=== PATIENT | male | born 1960 | race Hispanic/Latino ===

== ENCOUNTER → 2017-11-21 | Day surgery (SDC) | payer SELFPAY ==
[~2017-11-21] MED LIST: Lidocaine 1% PF 5 ML VIAL ONE; PROPOFOL 200 MG/20 ML VIAL ONE; Succinylcholine Chloride 20 MG/ML 10 ml SYRINGE FS ONE
[2017-11-21 21:47] LABS: #Eosinphils 0.3 thou/uL (0.0-0.7); #Lymphocytes 2.4 thou/uL (1.20-3.40); #Monocytes 0.5 thou/uL (0.11-0.59); #Neutrophils 4.5 thou/uL (1.40-6.50); %Basophils 0.5 % (0.0-1.0); %Eosinophils 3.5 % (0.0-10.0); %Lymphocytes 31.1 % (21.0-51.0); %Monocytes 6.2 % (0.0-10.0); %Neutrophils 58.7 % (42.0-75.0); Hemoglobin 14.9 g/dL (14.0-18.0); Mean Corpuscular HGB CONC 35.5 g/dL (32.0-36.0); Mean Corpuscular Hemoglobin 31.2 pg (27.0-31.0); Mean Corpuscular Volume 87.7 fL (78.0-98.0); Platelet Count 152 thou/uL (130-400); RBC Distribution Width 11.8 % (11.5-14.5); Red Blood Cell (RBC) Count 4.78 mill/uL (4.70-6.10); White Blood Cell (WBC) Count 7.6 thou/uL (4.8-10.8)
[2017-11-21 22:04] LABS: ALT (SGPT) 135 U/L (8-55); AST (SGOT) 74 U/L (5-34); Albumin 4.1 g/dL (3.5-5.0); Alkaline Phosphatase 127 U/L (40-150); Anion Gap 16 mmol/L (10-20); BUN (Urea Nitrogen) 16 mg/dL (8.4-25.7); Bilirubin, Total 0.6 mg/dL (0.2-1.2); Calc. Creatinine Clearance 0 mL/min (70-130); Calcium 9.3 mg/dL (7.8-10.44); Carbon Dioxide 17 mmol/L (22-29); Chloride 106 mmol/L (98-107); Estimated GFR-MDRD 52; Globulin 2.8 g/dL (2.4-3.5); Potassium 4.4 mmol/L (3.5-5.1); Protein, Total 6.9 g/dL (6.0-8.3); Sodium 135 mmol/L (136-145)
[2017-11-21 22:11] LABS: Glucose 562 mg/dL (70-105)
--- NOTE | 2017-11-21 22:15 | CT ---
CT NECK WITHOUT CONTRAST: 11/21/17 Multiple axial tomograms obtained through the neck IV enhancement. INDICATIONS: Assess for foreign body stuck in throat. FINDINGS: Parotid glands, submandibular glands and thyroid appear unremarkable. Nasopharynx unremarkable. Oropharynx and hypopharynx unremarkable. Larynx unremarkable. No radiopaque foreign body seen in the oropharynx, hypopharynx, or within the trachea. There is a radiopaque foreign body noted in the upper esophagus which would correspond to patient's s ymptoms. No evidence of adenopathy. Lung apices are clear. IMPRESSION: There is a radiopaque foreign body in the upper esophagus. This foreign body has a linear appearance measuring approximately 3 cm width x 0.5 cm thickness. POS: [facility]
--- NOTE | 2017-11-22 00:23 | OP ---
DATE OF PROCEDURE: 11/21/2017 PROCEDURE: Esophagogastroduodenoscopy with removal of foreign body from the esophagus. PREOPERATIVE DIAGNOSIS: Esophageal foreign body. OPERATIVE NOTE: Informed consent was obtained from the patient. He was sedated with general anesthe marlen. The bite block was placed the endoscope was advanced to the proximal esophagus where a bone fra gment was encountered. This measured around 3 cm and was lodged in the upper esophagus. There was n ot a focal stricture in this area. The fragment appears to have gotten large based on the size and s hape of the object and rather than narrowing of the esophagus. The bone fragment was grasped with a snare and removed through the patient's mouth. The remainder of the esophagus did not have focal abn ormality. The stomach had retained food that obscured views in the antrum and body and fundus. The duodenum was not visualized well either due to retained food. IMPRESSION: 1. Bone fragment removed from the proximal esophagus with a snare. There is no focal stricture at t his level. 2. Retained food in the stomach and duodenum obscured adequate endoscopic views. RECOMMENDATIONS: Follow up in GI clinic.
--- NOTE | 2017-11-22 00:36 | CON ---
DATE OF CONSULTATION: 11/21/2017 GASTROENTEROLOGY ER CONSULTATION NOTE CHIEF COMPLAINT: "Bone stuck in my esophagus." HISTORY OF PRESENT ILLNESS: Mr. Robles is a 57-year-old man who presented to the emergency room after he was eating some steak and had a bone get stuck in his esophagus around 7:30 p.m. He does not hav e teeth. He was working on getting the meat off a bone and swallowed the bone. He is able to swallo w his saliva around the bone. He has had a foreign body stuck in his throat couple years ago as well . He had a CT scan of his neck done in the ER that showed a 3 cm foreign body in the upper esophagus . He has had no nausea, vomiting, diarrhea, constipation. No weight loss. No prior acid reflux. N o chest pain or shortness of breath. PAST MEDICAL HISTORY: Diabetes. PAST SURGICAL HISTORY: Circumcision. FAMILY HISTORY: Negative for GI malignancy. SOCIAL HISTORY: Has a glass of wine each evening. He quit smoking 3 months ago. No drugs. ALLERGIES: No known drug allergies. MEDICATIONS: Metformin and possibly glyburide. REVIEW OF SYSTEMS: Negative x10 systems reviewed except as stated in the history of present illness. PHYSICAL EXAMINATION: VITAL SIGNS: Blood pressure 132/76, pulse 104, temperature 99.2. GENERAL: He is in no acute distress, alert, and oriented x3. HEENT: Eyes have no scleral icterus. Oropharynx is clear without lesions. NECK: No cervical or supraclavicular lymphadenopathy. LUNGS: Clear to auscultation bilaterally. HEART: Regular rate and rhythm without murmur. ABDOMEN: Soft, nontender, and nondistended. Bowel sounds are present. EXTREMITIES: No lower extremity edema. NEUROLOGIC: Cranial nerves are grossly intact. LABORATORY DATA: White blood cell count 7.6, hemoglobin 14.9, platelets 152. Creatinine 1.39, glucose 562, bilirubin 0.6, AST 74, ALT 135, alkaline phosphatase 127. IMPRESSION: 1. Esophageal foreign body. There is a 3-cm bone stuck in his upper esophagus by CT. 2. Elevated liver function tests. His ALT is greater than the AST. He does have a glass of wine in the evenings. His platelets are in the lower limits of normal, which may indicate some degree of po rtal hypertension. RECOMMENDATIONS: 1. We will plan esophagogastroduodenoscopy this evening to remove the foreign body. 2. Follow up in GI clinic to further evaluate the elevated liver tests. 3. Anticipate he will be discharged home following the endoscopy. 4. Discontinue alcohol for now.
== END ==
LOC: ERS 20:59 → SDC/OP 23:58
PROVIDERS: ATTEND Internal Medicine Gastroenterology
PROC: 0DC18ZZ Extirpation of Matter from Upper Esophagus, Via Natural or Artificial Opening Endoscopic (ICD-10-PCS; principal; 2017-11-21)
DX: T18.128A Food in esophagus causing other injury, initial encounter (principal); E11.9 Type 2 diabetes mellitus without complications; R79.89 Other specified abnormal findings of blood chemistry
CPT/HCPCS: 70490; 80053; 85025; 86850; 86900; 86901; J2001; J2704

== ENCOUNTER 2023-02-03 08:04 | Inpatient (IN) | payer SELFPAY ==
[2023-02-03 08:31] LABS: #Basophils 0.1 thou/uL (0.0-0.2); #Eosinphils 0.3 thou/uL (0.0-0.7); #Monocytes 0.9 thou/uL (0.11-0.59); #Neutrophils 10.2 thou/uL (1.40-6.50); %Basophils 0.5 % (0.0-1.0); %Eosinophils 2.3 % (0.0-10.0); %Lymphocytes 13.6 % (21.0-51.0); %Monocytes 6.7 % (0.0-10.0); %Neutrophils 76.6 % (42.0-75.0); Hematocrit 44.6 % (42.0-52.0); Hemoglobin 15.3 g/dL (14.0-18.0); Mean Corpuscular HGB CONC 34.3 g/dL (32.0-36.0); Mean Corpuscular Hemoglobin 29.6 pg (27.0-31.0); Mean Corpuscular Volume 86.3 fl (78.0-98.0); Mean Platelet Volume 10.6 fL (7.4-10.4); Platelet Count 230 10x3/uL (130-400); RBC Distribution Width 12.2 % (11.5-14.5); Red Blood Cell (RBC) Count 5.17 mill/uL (4.70-6.10); White Blood Cell (WBC) Count 13.3 10x3/uL (4.8-10.8)
[2023-02-03 08:45] LABS: ALT (SGPT) 89 U/L (8-55); AST (SGOT) 40 U/L (5-34); Albumin 4.2 g/dL (3.4-4.8); Alkaline Phosphatase 97 U/L (40-110); Anion Gap 14 mmol/L (10-20); BUN (Urea Nitrogen) 16 mg/dL (8.4-25.7); Calc. Creatinine Clearance 0 mL/min (70-130); Calcium 9.7 mg/dL (7.8-10.44); Carbon Dioxide 21 mmol/L (23-31); Chloride 101 mmol/L (98-107); Estimated GFR 97; Globulin 3.8 g/dL (2.4-3.5); Glucose 324 mg/dL (80-115); Potassium 3.9 mmol/L (3.5-5.1); Sodium 132 mmol/L (136-145)
[2023-02-03 08:46] LABS: INR-International Normal Ratio 1.1; PTT 27.5 sec (22.9-36.1); Prothrombin Time 14.5 sec (12.0-14.7)
[2023-02-03] MEDS ORDERED: CEFAZOLIN 1 GM VIAL ONE (09:15)
[2023-02-03] MEDS ORDERED: Ondansetron ODT 4 MG TAB SL PRN (09:30)
[2023-02-03] MEDS ORDERED: Acetaminophen 325 MG TAB PO PRN (09:30)
[2023-02-03] MEDS ORDERED: Ondansetron PF 4 MG/2 ML Vial IVP PRN (09:30)
[2023-02-03] MEDS ORDERED: Bisacodyl 5 MG TAB PO PRN (09:32)
[2023-02-03] MEDS ORDERED: HumaLOG 300 UNITS/3 ML VIAL SC PRN (09:32)
[2023-02-03] MEDS ORDERED: Senokot S 8.6-50 MG TAB PO PRN (09:32)
[2023-02-03] MEDS ORDERED: Bisacodyl 10 MG SUPP PR PRN (09:32)
[2023-02-03] MEDS ORDERED: Dextrose 50% Abboject 50 ML SYRINGE SLOW IVP PRN (09:32)
[2023-02-03] MEDS ORDERED: Glucagon 1 MG/ML KIT IM PRN (09:32)
[2023-02-03] MEDS ORDERED: Dextrose 5% in Water 1,000 ML IV PRN (09:32)
[2023-02-03] MEDS ORDERED: Lidocaine 1% w/Epinephrine 1:100K 20 ML VIAL ONE (09:36)
[2023-02-03] MEDS ORDERED: Boostrix 0.5 ML (Tdap) VIAL (>/=7 yrs of age) ONE ×2 (10:07→10:21)
[2023-02-03] MEDS ORDERED: Vancomycin 1.5 GRAM/300 ML BAG 1.5 GM in Premix Bag 1 BAG IVPB SCH (10:30)
[2023-02-03 11:39] VITALS: BMI 29.0
[2023-02-03] MEDS: HumaLOG 300 UNITS/3 ML VIAL SC PRN ×2 (13:12→17:10)
[2023-02-03 13:18] LABS: Synovial Fluid, Protein 7.7 g/dL (Not Available); Synovial Fluid, Uric Acid 3.4 mg/dL (Not Available)
[2023-02-03 13:36] LABS: RBC Count-Automated (BF) 98262 /cu.mm
[2023-02-03 13:38] LABS: BF Color Red; Body Fluid Source Synovial Fluid; Clarity Cloudy/Turbid (Clear); Tube # EDTA; WBC/Nucleated-Auto (BF) Greater than 51000 /cu.mm
[2023-02-03 14:31] LABS: BF Segmented Neutrophils 95 %; Cell Count Non Hematic 5 %
[2023-02-03] MEDS: HYDROcodone/Acetaminophen 5/325 mg Tablet PO PRN ×2 (15:09→20:51)
[2023-02-03] MEDS: VANCOMYCIN 1.25 GM/250 ML BAG 1.25 GM in Premix Bag 1 BAG IVPB SCH (20:16)
[2023-02-03] MEDS ORDERED: Insulin Glargine 30 UNITS/0.3 ML VIAL SC SCH (21:00)
[2023-02-04 08:08] LABS: #Basophils 0.1 thou/uL (0.0-0.2); #Eosinphils 0.5 thou/uL (0.0-0.7); #Monocytes 0.9 thou/uL (0.11-0.59); #Neutrophils 7.8 thou/uL (1.40-6.50); %Basophils 0.5 % (0.0-1.0); %Eosinophils 4.4 % (0.0-10.0); %Lymphocytes 12.9 % (21.0-51.0); %Neutrophils 73.9 % (42.0-75.0); Hematocrit 42.8 % (42.0-52.0); Hemoglobin 14.5 g/dL (14.0-18.0); Mean Corpuscular HGB CONC 33.9 g/dL (32.0-36.0); Mean Corpuscular Hemoglobin 29.3 pg (27.0-31.0); Mean Corpuscular Volume 86.5 fl (78.0-98.0); Mean Platelet Volume 10.7 fL (7.4-10.4); Platelet Count 208 10x3/uL (130-400); RBC Distribution Width 12.2 % (11.5-14.5); Red Blood Cell (RBC) Count 4.95 mill/uL (4.70-6.10); White Blood Cell (WBC) Count 10.6 10x3/uL (4.8-10.8)
[2023-02-04 08:15] LABS: Hemoglobin A1c 10.5 % (4.0-6.0)
[2023-02-04 08:31] LABS: ALT (SGPT) 65 U/L (8-55); AST (SGOT) 36 U/L (5-34); Albumin 3.7 g/dL (3.4-4.8); Alkaline Phosphatase 71 U/L (40-110); Anion Gap 14 mmol/L (10-20); BUN (Urea Nitrogen) 11 mg/dL (8.4-25.7); Bilirubin, Direct 0.4 mg/dL (0.1-0.3); Bilirubin, Total 0.9 mg/dL (0.2-1.2); Calc. Creatinine Clearance 115 mL/min (70-130); Calcium 9.1 mg/dL (7.8-10.44); Carbon Dioxide 22 mmol/L (23-31); Cardiac Risk 3.9 (Less than 4.5); Chloride 99 mmol/L (98-107); Cholesterol 149 mg/dl (< 200 Desired); Estimated GFR 101; Glucose 238 mg/dL (80-115); HDL Cholesterol 38 mg/dL (>60 Neg Risk); LDL Cholesterol, Calculated 90 mg/dL; Magnesium 1.6 mg/dL (1.6-2.6); Protein, Total 6.9 g/dL (5.8-8.1); Sodium 131 mmol/L (136-145); Triglycerides 104 mg/dL (Less than 150)
[2023-02-04] MEDS: VANCOMYCIN 1.25 GM/250 ML BAG 1.25 GM in Premix Bag 1 BAG IVPB SCH ×2 (09:15→22:44)
[2023-02-04 09:18] LABS: HBCM Index 0.06 S/CO (0-0.79); HBSAg Index 0.31 S/CO (0-0.99); Hep A IgM AB Non-Reactive S/CO (NonReactive); Hep A IgM S/CO 0.23 S/CO (0-0.79); Hep B Surf Ag Non-Reactive S/CO (NonReactive); Hep C IgG Ab Non-Reactive S/CO (NonReactive); Hep C Index 0.12 S/CO (0-0.79); Hepatitis B Core IgM Abs Non-Reactive S/CO (NonReactive); Thyroid Stimulating Hormone 2.9637 uIU/mL (0.35-4.94)
[2023-02-04] MEDS ORDERED: Insulin NPH Human Isophane 100 UNITS/ML (10 ML VIAL) SC SCH (10:30)
[2023-02-04] MEDS: HumaLOG 300 UNITS/3 ML VIAL SC PRN ×2 (12:39→18:06)
[2023-02-04] MEDS: HYDROcodone/Acetaminophen 5/325 mg Tablet PO PRN (19:08)
[2023-02-04] MEDS: Insulin Glargine 30 UNITS/0.3 ML VIAL SC SCH (21:08)
[2023-02-04 21:48] LABS: Vancomycin, Random 1.3 ug/mL (See Comment)
[2023-02-04] MEDS ORDERED: Vancomycin 1.5 GRAM/300 ML BAG 1.5 GM in Premix Bag 1 BAG IVPB SCH (22:30)
[2023-02-05] MEDS: Vancomycin 1.5 GRAM/300 ML BAG 1.5 GM in Premix Bag 1 BAG IVPB SCH ×3 (05:44→23:46)
[2023-02-05] MEDS: HYDROcodone/Acetaminophen 5/325 mg Tablet PO PRN ×2 (05:44→22:08)
[2023-02-05] MEDS: HumaLOG 300 UNITS/3 ML VIAL SC PRN ×2 (05:45→16:57)
[2023-02-05 07:03] LABS: #Basophils 0.1 thou/uL (0.0-0.2); #Eosinphils 0.6 thou/uL (0.0-0.7); #Monocytes 0.7 thou/uL (0.11-0.59); #Neutrophils 6.1 thou/uL (1.40-6.50); %Basophils 0.6 % (0.0-1.0); %Eosinophils 6.2 % (0.0-10.0); %Lymphocytes 17.1 % (21.0-51.0); %Monocytes 8.1 % (0.0-10.0); %Neutrophils 67.6 % (42.0-75.0); Hematocrit 42.8 % (42.0-52.0); Hemoglobin 14.5 g/dL (14.0-18.0); Mean Corpuscular HGB CONC 33.9 g/dL (32.0-36.0); Mean Corpuscular Hemoglobin 29.4 pg (27.0-31.0); Mean Corpuscular Volume 86.8 fl (78.0-98.0); Mean Platelet Volume 10.2 fL (7.4-10.4); Platelet Count 234 10x3/uL (130-400); Red Blood Cell (RBC) Count 4.93 mill/uL (4.70-6.10)
[2023-02-05 07:32] LABS: Anion Gap 13 mmol/L (10-20); BUN (Urea Nitrogen) 14 mg/dL (8.4-25.7); Calc. Creatinine Clearance 118 mL/min (70-130); Carbon Dioxide 24 mmol/L (23-31); Chloride 102 mmol/L (98-107); Estimated GFR 102; Glucose 212 mg/dL (80-115); Magnesium 1.8 mg/dL (1.6-2.6); Potassium 3.6 mmol/L (3.5-5.1); Sodium 135 mmol/L (136-145)
[2023-02-05 21:57] LABS: Vancomycin, Trough 10.6 ug/mL
[2023-02-05] MEDS: Insulin Glargine 30 UNITS/0.3 ML VIAL SC SCH (22:10)
[2023-02-05] MEDS: VANCOMYCIN 1.75 GM/500 ML BAG 1.75 GM in Premix Bag 1 BAG IVPB SCH (22:33)
[2023-02-05] MEDS ORDERED: Clotrimazole/Betamethasone Cr 15 GM TUBE TOP SCH (23:00)
[2023-02-06] MEDS: VANCOMYCIN 1.75 GM/500 ML BAG 1.75 GM in Premix Bag 1 BAG IVPB SCH (05:40)
[2023-02-06] MEDS: HumaLOG 300 UNITS/3 ML VIAL SC PRN (05:44)
[2023-02-06 06:09] LABS: #Basophils 0.1 thou/uL (0.0-0.2); #Eosinphils 0.7 thou/uL (0.0-0.7); #Monocytes 0.6 thou/uL (0.11-0.59); #Neutrophils 5.1 thou/uL (1.40-6.50); %Basophils 0.8 % (0.0-1.0); %Eosinophils 9.3 % (0.0-10.0); %Monocytes 7.9 % (0.0-10.0); %Neutrophils 64.6 % (42.0-75.0); Hematocrit 43.3 % (42.0-52.0); Hemoglobin 14.5 g/dL (14.0-18.0); Mean Corpuscular HGB CONC 33.5 g/dL (32.0-36.0); Mean Corpuscular Hemoglobin 28.9 pg (27.0-31.0); Mean Corpuscular Volume 86.3 fl (78.0-98.0); Mean Platelet Volume 10.4 fL (7.4-10.4); Platelet Count 235 10x3/uL (130-400); RBC Distribution Width 12.2 % (11.5-14.5); Red Blood Cell (RBC) Count 5.02 mill/uL (4.70-6.10); White Blood Cell (WBC) Count 7.9 10x3/uL (4.8-10.8)
[2023-02-06 06:45] LABS: Anion Gap 11 mmol/L (10-20); BUN (Urea Nitrogen) 12 mg/dL (8.4-25.7); Calc. Creatinine Clearance 114 mL/min (70-130); Calcium 9.2 mg/dL (7.8-10.44); Carbon Dioxide 24 mmol/L (23-31); Chloride 102 mmol/L (98-107); Estimated GFR 100; Glucose 234 mg/dL (80-115); Magnesium 1.7 mg/dL (1.6-2.6); Potassium 3.9 mmol/L (3.5-5.1); Sodium 133 mmol/L (136-145)
[2023-02-06 07:22] VITALS: BP 127/85; TEMP 98.2
[2023-02-06] MEDS ORDERED: Clotrimazole/Betamethasone Cr 15 GM TUBE TOP SCH (09:00)
[2023-02-06] MEDS ORDERED: Sulfameth/Trimethoprim DS 800-160mg TAB PO SCH (09:00)
== END 2023-02-06 11:01 | disposition home or self-care (01) | DRG 549 ==
LOC: ERS 08:04 → SUATTDRO 08:04 → T4-B 09:21
PROVIDERS: ADMIT Family Medicine; ATTEND Internal Medicine
DX: M00.062 Staphylococcal arthritis, left knee (principal); Z16.29 Resistance to other single specified antibiotic; M70.42 Prepatellar bursitis, left knee; B95.61 Methicillin susceptible Staphylococcus aureus infection as the cause of diseases classified elsewhere; R79.89 Other specified abnormal findings of blood chemistry; E11.9 Type 2 diabetes mellitus without complications; Z87.891 Personal history of nicotine dependence
CPT/HCPCS: 20610; 36415; 36416; 76705; 80048; 80053; 80061; 80074; 80076; 80202; 82945; 83036; 83605; 83735; 84157; 84443; 84560; 85025; 85060; 85610; 85730; 86140; 87040; 87070; 87077; 87186; 87205; 89051; 89060; 90471; 90715; 94760; 96365; J0690; J1650; J1815; J3370

== ENCOUNTER 2025-03-21 09:54 | Emergency (ER) | payer SELFPAY ==
[2025-03-21] MEDS ORDERED: Dexamethasone 10 MG/ML VIAL ONE (11:35)
== END 2025-03-21 11:46 | disposition home or self-care (01) ==
LOC: ERS 09:54
DX: L03.314 Cellulitis of groin (principal); E11.9 Type 2 diabetes mellitus without complications; Z79.84 Long term (current) use of oral hypoglycemic drugs
CPT/HCPCS: 96372; 99282; J1100